=== PATIENT | male | born 1995 | race Caucasian/White ===

== ENCOUNTER 2017-04-20 04:28 | Emergency (ER) | payer MEDICAID ==
--- NOTE | 2017-04-20 04:58 | ER NURSING DOCUMENTATION ---
Nurse's Notes [facility] Name:Espinoza Keane Age:21 yrs Sex:Male :1995 Arrival Date:04/20/2017 Time:04:28 Bed1 Private MD: Diagnosis:Toe Fracture-: Non-displaced Right Distal Toe Fx Presentation: 04/20 04:31 Acuity: CATRINA 4 sc1 04:43 Presenting complaint: Patient states: Medical clearance for police. Pt. does c/o right sc1 big toe pain from playing [employer] a couple of days ago. Transition of care: patient was not received from another setting of care. Notified ED Physician of patient's arrival and CC Dr. Morgan notified. 04:43 Method Of [place] [facility] [place] Assessment: 04:46 General: Appears in no apparent distress, well developed, well nourished, Behavior is sc1 cooperative, pleasant. Pain: Complains of pain in right first toe. Historical: - Allergies: Amoxicillin; - Home Meds: 1. None - PSHx: None; - Tetanus: unknown. - Ebola Screening: : Patient negative for fever greater than or equal to 101.5 degrees Fahrenheit, and additional compatible Ebola Virus Disease symptoms. Patient denies exposure to infectious person. Patient denies travel to an Ebola-affected area in the 21 days before illness onset. No symptoms or risks identified at this time. . - Immunization history: Flu Vaccine unknown. - Social history: Smoking status: Patient uses tobacco products, current every day smoker. Patient uses alcohol street drugs, marijuana. Screenin:47 Infectious Disease Risk None. Abuse screen: Denies threats or abuse. Nutritional sc1 screening: No deficits noted. Vital Signs: 04:47 BP 122 / 69; Pulse 58; Resp 16; Temp 98.4; Pulse Ox 95% on R/A; sc1 ED Course: 04:29 Patient arrived in ED. ma1 04:31 Olive Tristan, RN is Primary Nurse. sc1 04:31 Triage completed. sc1 04:35 Salvatore Morgan MD is Attending Physician. cd 04:46 Port Xray Completed. hz 04:47 Notified ED Physician of patient's arrival and chief complaint. Dr. Morgan notified. sc1 Allergy Band Placed Arm band placed on Bed in low position Call Light in Reach HOB Elevated. X-ray done. X-ray ordered. 04:54 TOE(S); [place] 2V [place] [id number] In Process Unspecified. EDMS 04:56 Aubrey tape toes on right. [facility] 04:57 Valuables Remains with patient. sc1 Administered Medications: No medications were administered Outcome: 04:50 Discharge ordered by . daniela 04:56 Discharged to police custody tn1 04:56 Condition: stable 04:56 Discharge instructions given to patient, Instructed on discharge instructions, follow up and referral plans. Demonstrated understanding of instructions. 04:57 Patient left the ED. sc1 Signatures: Dispatcher [employer] EDOlive Banks RN RN sc1 Salvatore Morgan MD MD cd Zolnowski, Heather hz Addison, Melissa [facility]
--- NOTE | 2017-04-20 04:58 | ER PHYSICIAN DOCUMENTATION ---
Physician Documentation [facility] Name:Espinoza Keane Age:21 yrs Sex:Male :1995 Arrival Date:04/20/2017 Time:: Bed1 Private MD: Salvatore Moreno Disposition: 04/20/17 04:50 Discharged to Shelter/Police. Impression: Toe Fracture - : Non-displaced Right Distal Toe Fx. - Condition is Good. - Discharge Instructions: TOE FRACTURE Closed - FRACTURE, Toe [Closed]. - Medical Reconciliation form form. - Follow up: Private Physician; When: As needed; Reason: Worsening of condition. - Problem is new. - Symptoms have improved. HPI: 04/20 04:44 This 21 yrs old Male presents to ER with complaints of Injury to right Great cd Toe. 04:44 The patient presents with a contusion, swelling, tenderness. The complaints affect the cd right foot, right first toe. Context: The problem was sustained outdoors, resulted from struck another person's toe when playing [employer]. Onset: The symptom(s)/episode began/occurred acutely, 2 day(s) ago. Associated signs and symptoms: The patient has no apparent associated signs or symptoms. Historical: - Allergies: Amoxicillin; - Home Meds: 1. None - PSHx: None; - Tetanus: unknown. - Ebola Screening: : Patient negative for fever greater than or equal to 101.5 degrees Fahrenheit, and additional compatible Ebola Virus Disease symptoms. Patient denies exposure to infectious person. Patient denies travel to an Ebola-affected area in the 21 days before illness onset. No symptoms or risks identified at this time. . - Immunization history: Flu Vaccine unknown. - Social history: Smoking status: Patient uses tobacco products, current every day smoker. Patient uses alcohol street drugs, marijuana. ROS: 04:46 MS/extremity: Positive for contusion, swelling, tenderness, of the right first toe. cd 04:46 All other systems are negative. Exam: 04:46 Constitutional: The patient appears alert, awake, non-diaphoretic, non-toxic, well cd developed, well nourished. 04:46 Musculoskeletal/extremity: Extremities: grossly normal except: noted in the right first toe: contusion, swelling, tenderness, ROM: limited passive range of motion due to pain, in the right first toe, Circulation is intact in all extremities. Sensation intact. 04:52 Skin: injury, contusion(s), that are deep, of the right first toe. cd Vital Signs: 04:47 BP 122 / 69; Pulse 58; Resp 16; Temp 98.4; Pulse Ox 95% on R/A; sc1 MDM: 04:35 Patient medically screened. cd 04:50 Differential diagnosis: fracture, sprain, Contusion. Data reviewed: and as a result, I cd will discharge patient. Data interpreted: Pulse oximetry: on room air is 95 %. Interpretation: normal. Counseling: I had a detailed discussion with the patient and/or guardian regarding: the historical points, exam findings, and any diagnostic results supporting the discharge/admit diagnosis, radiology results, the need for outpatient follow up, for a recheck, with the patient's primary care provider, to return to the emergency department if symptoms worsen or persist or if there are any questions or concerns that arise at home. Response to treatment: the patient's symptoms have mildly improved after treatment, and as a result, I will discharge patient. 04:51 Test interpretation: by ED physician or midlevel provider: plain radiologic studies, cd Toe X-Ray revealed a non-displaced fx. 04/20 04:54 Order name: TOE(S); [place] 2V [place] [id number] EDMS 04/20 09:16 Order name: TOE(S); [place] 2[place] [id number] EDMS Dispensed Medications: No medications were administered Signatures: Olive Tristan RN RN in1 Salvatore Morgan MD MD
--- NOTE | 2017-04-20 09:15 | RADIOLOGY REPORT ---
HISTORY: Right toe injury COMPARISON: None. FINDINGS: 3 views of the lower extremity digits obtained. A nondisplaced intra-articular fracture involves the base of the right great toe distal phalanx. There is also oblique linear lucency in the distal aspec t of the proximal phalanx, reaching the articular surface. The interphalangeal joint is normally alig don. The great toe metatarsal and metatarsophalangeal joint appear normal. There is a triangular-shaped calcification or density in the medial aspect of the great toenail bed. No soft tissue gas is demonstrated. IMPRESSION: 1. Definite intra-articular nondisplaced fracture of the base of the distal phalanx. 2. Suspicion for nondisplaced fracture of the distal aspect of the great toe proximal phalanx, also w ith intra-articular extension. 3. Density or calcification in the medial aspect of the great toe nail bed. This is of uncertain sign ificance. No soft tissue gas. Final Electronic Signature: This report was electronically signed by Venu Flores MD on 04/20/2017 9:12 AM. raisa /
== END 2017-04-20 04:57 | disposition other institution (70) ==
LOC: ER 04:28
DX: S92.404A Nondisplaced unspecified fracture of right great toe, initial encounter for closed fracture (principal); W50.0XXA Accidental hit or strike by another person, initial encounter; Y92.89 Other specified places as the place of occurrence of the external cause; Y93.69 Activity, other involving other sports and athletics played as a team or group; Z02.89 Encounter for other administrative examinations
CPT/HCPCS: 99283